=== PATIENT | male | born 1990 | race Caucasian/White ===

== ENCOUNTER 2020-11-09 14:10 | Emergency (ER) | payer BC ==
[~2020-11-09 14:10] MED LIST: CIPRO500 MG PO; FLAGYL500 MG PO; HYDROCODON-ACE1 EAC4 PO; PERCOCET 5-3251 EACH PO
[2020-11-09 15:48] LABS: RED BLOOD COUNT 5.58 M/UL (4.20-5.50); WHITE BLOOD COUNT 4.3 K/UL (4.5-11.0)
[2020-11-09 15:56] LABS: BUN/CREATININE RATIO 14 (0-10)
[2020-11-09] MEDS ORDERED: ZOFRAN4 MG PO (16:30)
[2020-11-09] MEDS ORDERED: HYDROCODON-ACE1 EAC4 PO (16:30)
[2020-11-10] MEDS ORDERED: ENDOCET 5-3251 EACH PO (18:50)
== END 2020-11-09 17:42 | disposition home or self-care (01) ==
LOC: ER1 14:10
DX: N23 Unspecified renal colic (principal); Z88.6 Allergy status to analgesic agent
CPT/HCPCS: 76775; 80053; 81001; 83605; 83690; 85025; 87040; 96374; 96375; 96376; 99284; J1170; J2405; J7030

== ENCOUNTER 2020-11-10 16:30 | Emergency (ER) | payer BC ==
[~2020-11-10 16:30] MED LIST changes: +ZOFRAN4 MG PO
[2020-11-10 17:47] LABS: HEMOGLOBIN 9.1 gm/dl (14.0-17.5); RED BLOOD COUNT 5.61 M/UL (4.20-5.50); WHITE BLOOD COUNT 4.5 K/UL (4.5-11.0)
[2020-11-10 18:01] LABS: BUN/CREATININE RATIO 10 (0-10)
[2020-11-10] MEDS ORDERED: ENDOCET 5-3251 EACH PO (18:50)
== END 2020-11-10 18:58 | disposition home or self-care (01) ==
LOC: ER1 16:30
PROVIDERS: Physician Assistant
DX: N23 Unspecified renal colic (principal); Z87.442 Personal history of urinary calculi; Z88.6 Allergy status to analgesic agent
CPT/HCPCS: 80053; 81001; 85025; 99284; J1170; J2550